=== PATIENT | male | born 1955 | race Caucasian/White ===

== ENCOUNTER → 2017-01-09 | Outpatient (CLI) | payer OTHER ==
[~2017-01-09] MED LIST: ALLO300T PO; CIPR500T87 PO; CYCL-259 PO; DIVA500T2 PO; FLUC200T PO; HYDR-3307 PO; LEVO750T26 PO; METH750T2 PO; NAPR220T77 PO; OMNIPAQUE 350 MG/ML, 100ML BOTTLE ONE; ONDA-40 PO; RIVA20TA PO; SIMV20TA3 PO; [UNRECOGNIZED DRUG - CODE] SC
== END | disposition home or self-care (01) ==
LOC: CFH 07:08
PROVIDERS: ATTEND Specialist
DX: K86.89 Other specified diseases of pancreas (principal); D73.89 Other diseases of spleen; J98.4 Other disorders of lung; I70.0 Atherosclerosis of aorta; M89.8X8 Other specified disorders of bone, other site; M16.11 Unilateral primary osteoarthritis, right hip; C83.39 Diffuse large B-cell lymphoma, extranodal and solid organ sites
CPT/HCPCS: 71260; 74177; 82565; Q9967

== ENCOUNTER → 2017-06-26 | Outpatient (CLI) | payer OTHER ==
[~2017-06-26] MED LIST changes: -ONDA-40 PO; +ONDA8TAB15 PO
== END | disposition home or self-care (01) ==
LOC: CFH 07:23
PROVIDERS: ATTEND Specialist
DX: N28.1 Cyst of kidney, acquired (principal); D73.89 Other diseases of spleen; M48.54XD Collapsed vertebra, not elsewhere classified, thoracic region, subsequent encounter for fracture with routine healing; C83.39 Diffuse large B-cell lymphoma, extranodal and solid organ sites
CPT/HCPCS: 71260; 74177; Q9967